=== PATIENT | female | born 1930 | race Caucasian/White ===

== ENCOUNTER → 2018-01-07 | Outpatient (CLI) | payer OTHER ==
[~2018-01-07] MED LIST: ACET325 PO; AMLO10/20 PO; ASPI325 PO; ASPI81CH PO; B Complete1 EACH PO; BENZ100A PO; BIMA.03OPS RIGHTEYE; DOCU100 PO; DONE5 PO; GENT.3OPSA BOTHEYES; LATA.005SO BOTHEYES; Slow Release I160 MG PO; TIMDOROPSO BOTHEYES; TIMO.5OPSO RIGHTEYE; VALS80 PO; VITAMIN D-32000 UNIT PO; [UNRECOGNIZED DRUG - OTHER] RIGHTEYE
== END ==
LOC: LAB 12:00 → LAB SHORT 12:00
DX: I83.018 Varicose veins of right lower extremity with ulcer other part of lower leg (principal)
CPT/HCPCS: 87070; 87075; 87205

== ENCOUNTER 2018-07-01 11:28 | Emergency (ER) | payer MEDICARE ==
[~2018-07-01] VITALS: Ht 162.6 cm; Wt 48.1 kg
[~2018-07-01 11:28] MED LIST changes: -B Complete1 EACH PO; -DOCU100 PO; +Exelon1 EAC1 TD; +FLUOROURACIL30 GM TOP; -LATA.005SO BOTHEYES; +MONT10T PO; +ONDA4ODT MM; +ONDA4ODT PO; +PANT40 PO; -Slow Release I160 MG PO; -VALS80 PO; -VITAMIN D-32000 UNIT PO
[2018-07-01] MEDS ORDERED: CITRATE OF MAG296 ML PO (14:51)
== END 2018-07-01 15:18 | disposition home or self-care (01) ==
LOC: ER 11:28
DX: K59.00 Constipation, unspecified (principal); Z79.899 Other long term (current) drug therapy
CPT/HCPCS: 74019; 99283-25

== ENCOUNTER → 2018-08-11 | Outpatient (CLI) | payer MEDICARE ==
[~2018-08-11] MED LIST changes: +**INCOMPLETE MED REC; +ABAT250V; +ACIDOPHILUS LA1 EACH PO; +Alphagan P5 ML BOTHEYES; +Amox Tr-K Clv1 EAC1 PO; +CHOL10002 PO; +CITRATE OF MAG296 ML PO; +DOCU100 PO; +Dorzolamide-Tim10 ML BOTHEYES; +ELIQUIS5 MG PO; +Ferrous Sulfat325 M2 PO; +IRON PO; +LOSARTAN-HCTZ1 EAC2 PO; +MELA3 PO; +PANT20 PO; +PROBIOTIC1 EAC1 PO; +Proctosol HC30 GM TOP; +Super B With V1 EACH PO; +TIMOLOL 0.5%-DO10 ML BOTHEYES; +VITAMIN D-32000 UNIT PO; +XARELTO20 MG PO; +Xalatan2.5 ML BOTHEYES
== END | disposition home or self-care (01) ==
LOC: LAB 09:07 → LAB SHORT 09:07
DX: R30.0 Dysuria (principal)
CPT/HCPCS: 87086

== ENCOUNTER 2018-08-14 14:08 | Observation (INO) | payer MEDICARE ==
[~2018-08-14] VITALS: Ht 162.6 cm; Wt 48.5 kg
[~2018-08-14 14:08] MED LIST changes: -**INCOMPLETE MED REC; -ABAT250V; -ACIDOPHILUS LA1 EACH PO; -Alphagan P5 ML BOTHEYES; -Amox Tr-K Clv1 EAC1 PO; -CHOL10002 PO; -DOCU100 PO; -Dorzolamide-Tim10 ML BOTHEYES; -ELIQUIS5 MG PO; -Ferrous Sulfat325 M2 PO; -IRON PO; -LOSARTAN-HCTZ1 EAC2 PO; -MELA3 PO; -PANT20 PO; -PROBIOTIC1 EAC1 PO; -Proctosol HC30 GM TOP; -Super B With V1 EACH PO; -TIMOLOL 0.5%-DO10 ML BOTHEYES; -VITAMIN D-32000 UNIT PO; -XARELTO20 MG PO; -Xalatan2.5 ML BOTHEYES
[2018-08-14 14:56] LABS: BASOPHILS ABSOLUTE AUTO 0.02 K/mm3 (0.00-0.23); BASOPHILS PERCENT AUTO 0 % (0-2); EOSINOPHILS ABSOLUTE AUTO 0.15 K/mm3 (0.00-0.68); EOSINOPHILS PERCENT AUTO 3 % (0-6); Hematocrit 34.8 % (33.0-51.0); Hemoglobin 10.9 g/dL (11.5-16.0); IMMATURE GRAN ABSOLUTE AUTO 0.02 K/mm3 (0.00-0.10); IMMATURE GRAN PERCENT AUTO 0 % (0-1); LYMPHOCYTES ABSOLUTE AUTO 0.92 K/mm3 (0.84-5.20); LYMPHOCYTES PERCENT AUTO 16 % (21-46); MONOCYTES ABSOLUTE AUTO 0.38 K/mm3 (0.16-1.47); MONOCYTES PERCENT AUTO 7 % (4-13); Mean Corpuscular HGB 31.1 pg (26.0-34.0); Mean Corpuscular HGB Conc 31.3 g/dL (31.5-36.5); Mean Corpuscular Volume 99 fL (80-100); Mean Platelet Volume 9.8 fL (9.1-12.4); NEUTROPHILS PERCENT AUTO 74 % (41-73); Platelet Count 243 K/mm3 (150-400); RDW Standard Deviation 47.8 fL (35.1-46.3); White Blood Cell Count 5.69 K/mm3 (4.00-11.30)
[2018-08-14 15:13] LABS: Alanine Aminotransfer (ALT/SGP 28 U/L (12-78); Albumin, Blood 3.3 g/dL (3.4-5.0); Albumin/Globulin Ratio 0.7 (0.8-1.8); Alk Phos 97 U/L (50-136); Anion Gap 8 mmol/L (6-16); Aspartate Aminotrans (AST/SGOT 20 U/L (12-37); Bilirubin, Total 0.3 mg/dL (0.1-1.0); Blood Urea Nitrogen 26 mg/dL (8-24); Bun/Creatinine Ratio 34.6 (12.0-20.0); CO2, Blood 26 mmol/L (21-32); Calcium, Blood 9.7 mg/dL (8.5-10.1); Chloride, Blood 110 mmol/L (98-108); Creatinine, Blood 0.75 mg/dL (0.40-1.00); Globulin, Blood 4.5 g/dL (2.2-4.0); Glomerular Filtration Rate >60 (60-); Glucose, Blood 102 mg/dL (70-99); Potassium, Blood 3.9 mmol/L (3.5-5.5); Sodium, Blood 144 mmol/L (136-145); Total Protein, Blood 7.8 g/dL (6.4-8.2)
[2018-08-14] MEDS ORDERED: TIMOLOL 0.5%-DO10 ML BOTHEYES (15:52)
[2018-08-14] MEDS ORDERED: **INCOMPLETE MED REC (16:19)
[2018-08-14] MEDS ORDERED: Alphagan P5 ML BOTHEYES (17:05)
[2018-08-14] MEDS ORDERED: VITAMIN D-32000 UNIT PO (17:06)
[2018-08-14] MEDS ORDERED: XARELTO20 MG PO (17:13)
[2018-08-14] MEDS ORDERED: LOSARTAN-HCTZ1 EAC2 PO (17:13)
[2018-08-14] MEDS ORDERED: Dorzolamide-Tim10 ML BOTHEYES (17:16)
[2018-08-14] MEDS ORDERED: Xalatan2.5 ML BOTHEYES (17:18)
[2018-08-14] MEDS ORDERED: IRON PO (17:18)
[2018-08-14] MEDS ORDERED: Super B With V1 EACH PO (17:19)
[2018-08-14] MEDS ORDERED: CHOL10002 PO (17:20)
[2018-08-14] MEDS ORDERED: DOCU100 PO (17:21)
[2018-08-14] MEDS ORDERED: MELA3 PO (17:21)
[2018-08-14] MEDS ORDERED: PROBIOTIC1 EAC1 PO (17:22)
[2018-08-14] MEDS ORDERED: Proctosol HC30 GM TOP (17:24)
[2018-08-14 17:33] LABS: Hematocrit 32.2 % (33.0-51.0); Hemoglobin 10.1 g/dL (11.5-16.0)
[2018-08-14] MEDS ORDERED: Amox Tr-K Clv1 EAC1 PO (17:51)
--- NOTE | 2018-08-14 20:45 | NUR ---
PATIENT IS A NEW ADMIT FROM THE ED. THREE PERSON TRANSFER FROM [facility] TO BED. AXO TO SELF AND DAUGHTER; NOT SURE OF MONTH OR NAME OF FACILITY BUT KNOW IT IS HEALTH CARE RELATED. DAUGHTER PRESENT ON ADMIT. IV PROTONIX INFUSING FROM ED AT 10 mL/HR. FAMILY AND PATIENT ORIENTED TO ROOM AND CALL LIGHT. DENIES PAIN, SOB, AND N/V. DAUGHTER STAYING FOR ANOTHER HOUR. BED ALARM ACTIVATED. CALL LIGHT IN REACH. WILL CONTINUE TO MONITOR.
--- NOTE | 2018-08-14 21:20 | NUR ---
DAUGHTER CALLED CAREGIVER TO SIT WITH PATIENT THIS SHIFT.
--- NOTE | 2018-08-14 22:08 | NUR ---
UA COLLECTED AND SENT TO LAB.
--- NOTE | 2018-08-14 22:09 | NUR ---
CAREGIVER PRESENT IN ROOM UNTIL MORNING. DAUGHTER LEFT FOR EVENING.
[2018-08-14 22:15] LABS: Source, Urine Clean Catch
[2018-08-14 22:21] LABS: Bilirubin, Urine Neg (Neg); Blood, Urine Neg (Neg); Glucose Qualitative, Urine Neg (Neg); Ketones, Urine Neg (Neg); Leukocyte Esterase, Urine 1+ (Neg); Nitrite, Urine Neg (Neg); Protein, Urine Neg (Neg); Specific Gravity, Urine 1.015 (1.003-1.022); Urobilinogen, Urine NORM (Normal)
[2018-08-14 22:23] LABS: Appearance, Urine Clear (Clear); Color, Urine Yellow (P-Yellow)
[2018-08-14 22:33] LABS: Bacteria Rare /hpf; Red Blood Cells, Urine Not Seen /hpf (0-2); Squamous Epithelial Cells Rare /hpf (Few)
--- NOTE | 2018-08-14 23:07 | NUR ---
NS INFUSING AT 75mL/HR AND PROTONIX AT 10 mL/HR. CAREGIVER PRESENT TALKING WITH PATIENT. CALL LIGHT IN REACH.
--- NOTE | 2018-08-14 23:25 | NUR ---
GI CONSULT CALLED IN TO ANSWERING SERVICE PER ORDER. REASON: GI BLEED
[2018-08-14 23:42] LABS: Hematocrit 30.7 % (33.0-51.0); Hemoglobin 9.9 g/dL (11.5-16.0)
--- NOTE | 2018-08-15 00:58 | NUR ---
PATIENT ACTIVATED BED ALARM X 3 SINCE ADMIT. PATIENT REORIENTED BACK INTO BED. CAREGIVER NO LONGER PRESENT IN ROOM AND DID NOT COMMUNICATE WHEN SHE LEFT. BED ALARM ACTIVATED.
--- NOTE | 2018-08-15 01:28 | NUR ---
BED EXIT ALARM X 2 IN LAST 15 MINUTES. PATIENT NOT ABLE TO ORIENTATE AT THIS TIME. BED ALARM SET. CALL LIGHT IN REACH.
--- NOTE | 2018-08-15 02:01 | NUR ---
PATIENT CONTINUES TO TRY TO EXIT BED X4 SITTING AT SIDE OF BED WHEN ALARM ACTIVATES. PATIENT REPOSITIONED BACK INTO BED. PATIENT AGITATION INCREASING WANTING TO LEAVE BED. WILL CONTINUE TO MONITOR.
--- NOTE | 2018-08-15 03:23 | NUR ---
[place] VEST AND BILATERAL SOFT RESTRAINTS ORDERED BY HOSPITALIST DR BERMUDEZ. FOR TRYING TO EXIT BED; FALL RISK; PULLING AT IV, CORDS, LINES; PULLING TELE OFF.
--- NOTE | 2018-08-15 03:47 | NUR ---
SHIFT SUMMARY PATIENT IS A NEW ADMIT FROM ED. AXO TO SELF AND DAUGHTER. PIV REMAINS INTACT. IV PROTONIC INFUSING AT 10 mL/HR AND NS INFUSING AT 75mL/HR. PATIENT TRIED TO EXIT BED FOR A FEW HOURS. HOSPITALIST DR BERMUDEZ ORDERD [place] VEST AND BILATERAL WRIST RESTRAINTS. PATIENT IS A FALL RISK; PULLS AT IV LINES AND CORDS FROM TELE. AUDIOVISUAL TECH REPORTS NSR 65. DENIES PAIN, SOB, AND N/V. DAUGHTER PRESENT FOR ADMIT AND CALLED HER CAREGIVER TO STAY FOR THE FULL NIGHT. CAREGIVER LEFT WHEN PATIENT FELL ASLEEP NOT INFORMING STAFF. PATIENT IS NPO. TWO PERSON ASSIST TO BSC. GI CONSULT CALLED IN. UA SENT TO LAB. INCREASED AGITITATION T/O SHIFT. BED IN LOWEST POSITION. WILL CONTINUE TO MONITOR UNTIL DAY SHIFT NURSE ASSUMES CARE.
[2018-08-15 06:05] LABS: Hematocrit 29.2 % (33.0-51.0); Hemoglobin 9.3 g/dL (11.5-16.0); Mean Corpuscular HGB Conc 31.8 g/dL (31.5-36.5); Mean Corpuscular Volume 97 fL (80-100); Platelet Count 216 K/mm3 (150-400); RDW Coefficient Variation 12.8 % (11.7-14.2); RDW Standard Deviation 45.5 fL (35.1-46.3); White Blood Cell Count 5.87 K/mm3 (4.00-11.30)
[2018-08-15 06:14] LABS: Anion Gap 8 mmol/L (6-16); Blood Urea Nitrogen 22 mg/dL (8-24); Bun/Creatinine Ratio 28.9 (12.0-20.0); CO2, Blood 23 mmol/L (21-32); Calcium, Blood 9.1 mg/dL (8.5-10.1); Chloride, Blood 115 mmol/L (98-108); Creatinine, Blood 0.76 mg/dL (0.40-1.00); Glomerular Filtration Rate >60 (60-); Glucose, Blood 104 mg/dL (70-99); Potassium, Blood 3.5 mmol/L (3.5-5.5); Sodium, Blood 146 mmol/L (136-145)
[2018-08-15] MEDS ORDERED: Ferrous Sulfat325 M2 PO (12:19)
[2018-08-15] MEDS ORDERED: LOSARTAN-HCTZ1 EAC2 PO (12:22)
[2018-08-15] MEDS ORDERED: ACIDOPHILUS LA1 EACH PO (12:22)
[2018-08-15] MEDS ORDERED: XARELTO20 MG PO (12:23)
[2018-08-15] MEDS ORDERED: MELA3 PO (12:23)
[2018-08-15] MEDS ORDERED: ABAT250V (12:49)
[2018-08-15] MEDS ORDERED: ELIQUIS5 MG PO ×2 (12:49→13:05)
[2018-08-15] MEDS ORDERED: PANT20 PO (12:51)
--- NOTE | 2018-08-15 14:18 | NUR ---
PT DISCHARGED HOME AT 1245 TODAY WITH DAUGHTER TO TRANSPORT. ALL PAPERS REVIEWED AND EDUCATIONAL MATERIAL SENT. MEDICATIONS FAXED TO [facility]. PT AOX1 AND HAD NEED OF RESTRAINTS THROUGH OUT THE MORNING. PT IMPULSIVE AND HAD A HARD TIME FOLLOWING INSTRUTION. PT WAS ESCORTED IN WHEEL CHAIR BY TWO [employer] FOR ASSITANCE INTO AUTOMOBILE. IV REMOVED PRIOR TO DISCHARGE.
== END 2018-08-15 13:47 | disposition home or self-care (01) ==
LOC: ER 14:08 → MEDS 14:09
PROVIDERS: Physician Assistant; ADMIT Internal Medicine
DX: K92.2 Gastrointestinal hemorrhage, unspecified (principal); D64.9 Anemia, unspecified; I10 Essential (primary) hypertension; F03.90 Unspecified dementia, unspecified severity, without behavioral disturbance, psychotic disturbance, mood disturbance, and anxiety; Z86.711 Personal history of pulmonary embolism; Z79.01 Long term (current) use of anticoagulants; Z79.899 Other long term (current) drug therapy
CPT/HCPCS: 36415; 80048; 80053; 81001; 82272; 85014; 85018; 85025; 85027; 87086; 93005; 93010; 96365; 96366; 96376; 99285-25; C9113; G0378; J7030

== ENCOUNTER 2018-09-07 17:13 | Inpatient (IN) | payer MEDICARE ==
[~2018-09-07] VITALS: Ht 162.6 cm; Wt 62.8 kg
[~2018-09-07 17:13] MED LIST changes: +**INCOMPLETE MED REC; +ABAT250V; +ACIDOPHILUS LA1 EACH PO; +Alphagan P5 ML BOTHEYES; +Amox Tr-K Clv1 EAC1 PO; +CHOL10002 PO; +DOCU100 PO; +Dorzolamide-Tim10 ML BOTHEYES; +ELIQUIS5 MG PO; +Ferrous Sulfat325 M2 PO; +IRON PO; +LOSARTAN-HCTZ1 EAC2 PO; +MELA3 PO; +PANT20 PO; +PROBIOTIC1 EAC1 PO; +Proctosol HC30 GM TOP; +Super B With V1 EACH PO; +TIMOLOL 0.5%-DO10 ML BOTHEYES; +VITAMIN D-32000 UNIT PO; +XARELTO20 MG PO; +Xalatan2.5 ML BOTHEYES
[2018-09-07] MEDS ORDERED: ELIQUIS5 MG PO (17:30)
[2018-09-07] MEDS ORDERED: BRIMONIDINE TART5 M1 OP (17:53)
[2018-09-07 18:20] LABS: BASOPHILS ABSOLUTE AUTO 0.02 K/mm3 (0.00-0.23); BASOPHILS PERCENT AUTO 0 % (0-2); EOSINOPHILS PERCENT AUTO 0 % (0-6); Hematocrit 30.1 % (33.0-51.0); Hemoglobin 9.8 g/dL (11.5-16.0); IMMATURE GRAN ABSOLUTE AUTO 0.03 K/mm3 (0.00-0.10); IMMATURE GRAN PERCENT AUTO 0 % (0-1); LYMPHOCYTES ABSOLUTE AUTO 0.64 K/mm3 (0.84-5.20); LYMPHOCYTES PERCENT AUTO 6 % (21-46); MONOCYTES ABSOLUTE AUTO 0.62 K/mm3 (0.16-1.47); MONOCYTES PERCENT AUTO 6 % (4-13); Mean Corpuscular HGB Conc 32.6 g/dL (31.5-36.5); Mean Platelet Volume 10.1 fL (9.1-12.4); NEUTROPHILS ABSOLUTE AUTO 9.27 K/mm3 (1.96-9.15); NEUTROPHILS PERCENT AUTO 88 % (41-73); Platelet Count 193 K/mm3 (150-400); Red Blood Cell Count 3.06 M/mm3 (3.80-5.20); White Blood Cell Count 10.58 K/mm3 (4.00-11.30)
[2018-09-07 18:22] LABS: Mean Corpuscular Volume 98 fL (80-100)
[2018-09-07 18:28] LABS: Source, Urine Catheter
[2018-09-07 18:32] LABS: Alanine Aminotransfer (ALT/SGP 21 U/L (12-78); Albumin, Blood 2.9 g/dL (3.4-5.0); Albumin/Globulin Ratio 0.7 (0.8-1.8); Alk Phos 86 U/L (50-136); Anion Gap 8 mmol/L (6-16); Aspartate Aminotrans (AST/SGOT 25 U/L (12-37); Bilirubin, Total 0.6 mg/dL (0.1-1.0); Blood Urea Nitrogen 22 mg/dL (8-24); CO2, Blood 25 mmol/L (21-32); Calcium, Blood 8.9 mg/dL (8.5-10.1); Chloride, Blood 106 mmol/L (98-108); Creatinine, Blood 0.73 mg/dL (0.40-1.00); Globulin, Blood 4.2 g/dL (2.2-4.0); Glomerular Filtration Rate >60 (60-); Glucose, Blood 115 mg/dL (70-99); Potassium, Blood 3.1 mmol/L (3.5-5.5); Sodium, Blood 139 mmol/L (136-145); Total Protein, Blood 7.1 g/dL (6.4-8.2); Troponin I 0.039 ng/mL (0.000-0.040)
[2018-09-07 18:34] LABS: Bilirubin, Urine Neg (Neg); Blood, Urine 4+ (Neg); Glucose Qualitative, Urine Neg (Neg); Ketones, Urine 1+ (Neg); Leukocyte Esterase, Urine Neg (Neg); Nitrite, Urine Neg (Neg); Protein, Urine 1+ (Neg); Urobilinogen, Urine NORM (Normal)
[2018-09-07 18:39] LABS: Appearance, Urine Clear (Clear); Color, Urine Yellow (P-Yellow)
[2018-09-07 18:40] LABS: Bacteria Mod /hpf; Red Blood Cells, Urine 25-50 /hpf (0-2); Squamous Epithelial Cells Not Seen /hpf (Few); White Blood Cells, Urine 0-2 /hpf (0-5)
[2018-09-07 18:52] LABS: Influenza A Negative (NEGATIVE); Influenza B Negative (NEGATIVE)
[2018-09-08 04:36] LABS: BASOPHILS ABSOLUTE AUTO 0.02 K/mm3 (0.00-0.23); BASOPHILS PERCENT AUTO 0 % (0-2); EOSINOPHILS ABSOLUTE AUTO 0.01 K/mm3 (0.00-0.68); EOSINOPHILS PERCENT AUTO 0 % (0-6); Hematocrit 28.1 % (33.0-51.0); Hemoglobin 9.1 g/dL (11.5-16.0); IMMATURE GRAN ABSOLUTE AUTO 0.06 K/mm3 (0.00-0.10); IMMATURE GRAN PERCENT AUTO 1 % (0-1); LYMPHOCYTES ABSOLUTE AUTO 0.44 K/mm3 (0.84-5.20); LYMPHOCYTES PERCENT AUTO 5 % (21-46); MONOCYTES ABSOLUTE AUTO 0.51 K/mm3 (0.16-1.47); MONOCYTES PERCENT AUTO 6 % (4-13); Mean Corpuscular HGB 31.3 pg (26.0-34.0); Mean Corpuscular HGB Conc 32.4 g/dL (31.5-36.5); Mean Corpuscular Volume 97 fL (80-100); NEUTROPHILS ABSOLUTE AUTO 7.71 K/mm3 (1.96-9.15); NEUTROPHILS PERCENT AUTO 88 % (41-73); Platelet Count 160 K/mm3 (150-400); RDW Standard Deviation 46.3 fL (35.1-46.3); Red Blood Cell Count 2.91 M/mm3 (3.80-5.20); White Blood Cell Count 8.75 K/mm3 (4.00-11.30)
[2018-09-08 04:53] LABS: Anion Gap 8 mmol/L (6-16); Blood Urea Nitrogen 18 mg/dL (8-24); Bun/Creatinine Ratio 28.4 (12.0-20.0); CO2, Blood 22 mmol/L (21-32); Calcium, Blood 8.2 mg/dL (8.5-10.1); Chloride, Blood 113 mmol/L (98-108); Creatinine, Blood 0.63 mg/dL (0.40-1.00); Glomerular Filtration Rate >60 (60-); Glucose, Blood 102 mg/dL (70-99); Potassium, Blood 3.4 mmol/L (3.5-5.5); Sodium, Blood 143 mmol/L (136-145)
[2018-09-08 10:15] LABS: BASOPHILS ABSOLUTE AUTO 0.01 K/mm3 (0.00-0.23); BASOPHILS PERCENT AUTO 0 % (0-2); EOSINOPHILS PERCENT AUTO 0 % (0-6); Hematocrit 28.6 % (33.0-51.0); Hemoglobin 9.3 g/dL (11.5-16.0); IMMATURE GRAN PERCENT AUTO 1 % (0-1); LYMPHOCYTES PERCENT AUTO 4 % (21-46); MONOCYTES ABSOLUTE AUTO 0.56 K/mm3 (0.16-1.47); MONOCYTES PERCENT AUTO 6 % (4-13); Mean Corpuscular HGB 31.3 pg (26.0-34.0); Mean Corpuscular HGB Conc 32.5 g/dL (31.5-36.5); Mean Corpuscular Volume 96 fL (80-100); Mean Platelet Volume 9.8 fL (9.1-12.4); NEUTROPHILS ABSOLUTE AUTO 9.17 K/mm3 (1.96-9.15); NEUTROPHILS PERCENT AUTO 90 % (41-73); Platelet Count 166 K/mm3 (150-400); RDW Standard Deviation 45.8 fL (35.1-46.3); Red Blood Cell Count 2.97 M/mm3 (3.80-5.20); White Blood Cell Count 10.24 K/mm3 (4.00-11.30)
[2018-09-09 05:23] LABS: BASOPHILS ABSOLUTE AUTO 0.02 K/mm3 (0.00-0.23); BASOPHILS PERCENT AUTO 0 % (0-2); EOSINOPHILS PERCENT AUTO 0 % (0-6); Hematocrit 26.1 % (33.0-51.0); Hemoglobin 8.5 g/dL (11.5-16.0); IMMATURE GRAN ABSOLUTE AUTO 0.04 K/mm3 (0.00-0.10); IMMATURE GRAN PERCENT AUTO 1 % (0-1); LYMPHOCYTES ABSOLUTE AUTO 0.54 K/mm3 (0.84-5.20); LYMPHOCYTES PERCENT AUTO 8 % (21-46); MONOCYTES ABSOLUTE AUTO 0.64 K/mm3 (0.16-1.47); MONOCYTES PERCENT AUTO 9 % (4-13); Mean Corpuscular HGB 31.4 pg (26.0-34.0); Mean Corpuscular HGB Conc 32.6 g/dL (31.5-36.5); Mean Corpuscular Volume 96 fL (80-100); Mean Platelet Volume 9.9 fL (9.1-12.4); NEUTROPHILS ABSOLUTE AUTO 5.95 K/mm3 (1.96-9.15); NEUTROPHILS PERCENT AUTO 83 % (41-73); Platelet Count 157 K/mm3 (150-400); RDW Coefficient Variation 12.9 % (11.7-14.2); RDW Standard Deviation 45.7 fL (35.1-46.3); Red Blood Cell Count 2.71 M/mm3 (3.80-5.20); White Blood Cell Count 7.19 K/mm3 (4.00-11.30)
[2018-09-09 05:50] LABS: Alanine Aminotransfer (ALT/SGP 19 U/L (12-78); Albumin, Blood 2.5 g/dL (3.4-5.0); Albumin/Globulin Ratio 0.8 (0.8-1.8); Alk Phos 64 U/L (50-136); Anion Gap 8 mmol/L (6-16); Aspartate Aminotrans (AST/SGOT 26 U/L (12-37); Bilirubin, Total 0.4 mg/dL (0.1-1.0); Blood Urea Nitrogen 18 mg/dL (8-24); Bun/Creatinine Ratio 26.7 (12.0-20.0); CO2, Blood 22 mmol/L (21-32); Calcium, Blood 8.2 mg/dL (8.5-10.1); Chloride, Blood 114 mmol/L (98-108); Creatinine, Blood 0.67 mg/dL (0.40-1.00); Globulin, Blood 3.2 g/dL (2.2-4.0); Glomerular Filtration Rate >60 (60-); Glucose, Blood 106 mg/dL (70-99); Potassium, Blood 3.2 mmol/L (3.5-5.5); Sodium, Blood 144 mmol/L (136-145); Total Protein, Blood 5.7 g/dL (6.4-8.2)
--- NOTE | 2018-09-09 07:33 | NUR ---
alert, orintated to self, dementia, removed field start, saline locked, room air, frequent bm's during shift, call light in place and frequent reminder to utilize but has not used, walking rounds completed with day shift
--- NOTE | 2018-09-09 13:29 | NUR ---
Spiritual care visit conducted. Patient was lying in bed and alert when I entered the room. I was greeted by patient's daughter, Deja, who explained that the patient has alheimer's and so I talked with Deja about patient's current medical condition and about the Patient's life and family history. I then spent some time talking with patient and asked her if I could pray for her. Patient said "Yes." I provided prayer at that time. Patient and Deja expressed gratitude for the visit.
[2018-09-09 15:33] LABS: Adenovirus F 40/41 Not Detected (NOT DETECT); Astrovirus Not Detected (NOT DETECT); Campylobacter Sp Not Detected (NOT DETECT); Cryptosporidium Not Detected (NOT DETECT); Cyclospora Cayetanensis Not Detected (NOT DETECT); E. Coli O157 Not Detected (NOT DETECT); Entamoeba Histolytica Not Detected (NOT DETECT); Enteroaggregative E. coli-EAEC Not Detected (NOT DETECT); Enteropathogenic E. coli-EPEC Not Detected (NOT DETECT); Enterotoxigenic E. coli-ETEC Not Detected (NOT DETECT); Giardia Lamblia Not Detected (NOT DETECT); Norovirus GI/GII Not Detected (NOT DETECT); Plesiomonas Shigelloides Not Detected (NOT DETECT); Rotavirus A Not Detected (NOT DETECT); Salmonella Sp Not Detected (NOT DETECT); Sapovirus Not Detected (NOT DETECT); Shiga Toxin-prod E. coli-STEC Not Detected (NOT DETECT); Shigella/Enteroin E. coli-EIEC Not Detected (NOT DETECT); Vibrio Cholerae Not Detected (NOT DETECT); Vibrio Sp Not Detected (NOT DETECT); Yersinia Enterocolitica Not Detected (NOT DETECT)
--- NOTE | 2018-09-09 17:46 | NUR ---
SHIFT SUMMARY PATIENT A&O TO SELF AND FAMILY. VERY CONFUSED, HAS A HARD TIME FOLLOWING DIRECTION. PATIENT C/O OF PAIN IN BOTH LEGS THIS SHIFT, RN MEDICATED PER E AUG. DENIES ANY SOB, RESP E/U ON RA. STOOL SAMPLE SENT TODAY, CAME BACK C DIFF POSITIVE. PT STARTED ON ORAL VANCO. ON CONTACT PRECAUTIONS. FAMILY IS AT THE BEDSIDE. REPOSITIONED Q2 HOURS. RESTED THROUGHOUT THE SHIFT. NO OTHER ACUTE CHANGES. BED ALARM ON, CALL LIGHT WITHIN REACH. RN WILL CONTINUE TO MONITOR.
[2018-09-10 05:30] LABS: Hematocrit 28.4 % (33.0-51.0); Hemoglobin 9.1 g/dL (11.5-16.0); Mean Corpuscular HGB 31.6 pg (26.0-34.0); Mean Platelet Volume 9.9 fL (9.1-12.4); Platelet Count 162 K/mm3 (150-400); RDW Coefficient Variation 12.8 % (11.7-14.2); Red Blood Cell Count 2.88 M/mm3 (3.80-5.20); White Blood Cell Count 8.56 K/mm3 (4.00-11.30)
[2018-09-10 05:32] LABS: Mean Corpuscular Volume 99 fL (80-100)
[2018-09-10 05:51] LABS: Anion Gap 9 mmol/L (6-16); Blood Urea Nitrogen 19 mg/dL (8-24); Bun/Creatinine Ratio 28.3 (12.0-20.0); CO2, Blood 22 mmol/L (21-32); Calcium, Blood 8.5 mg/dL (8.5-10.1); Chloride, Blood 113 mmol/L (98-108); Creatinine, Blood 0.67 mg/dL (0.40-1.00); Glomerular Filtration Rate >60 (60-); Glucose, Blood 120 mg/dL (70-99); Potassium, Blood 3.4 mmol/L (3.5-5.5); Sodium, Blood 144 mmol/L (136-145)
[2018-09-10 06:12] LABS: BAND PERCENT MAN 9 % (0-8); BASOPHILS PERCENT MAN 0 % (0-2); EOSINOPHILS PERCENT MAN 0 % (0-6); LYMPHOCYTES ABSOLUTE MAN 0.42 K/mm3 (0.84-5.20); LYMPHOCYTES PERCENT MAN 5 % (21-46); MONOCYTES ABSOLUTE MAN 0.42 K/mm3 (0.16-1.47); MONOCYTES PERCENT MAN 5 % (4-13); SEG NEUTROPHILS PERCENT MAN 81 % (41-73); TOTAL CELLS COUNTED 100
--- NOTE | 2018-09-10 07:55 | NUR ---
compliant, confused and anxious, saline locked, room air, call light in reach, walking report given to day shift
[2018-09-10] MEDS ORDERED: ACET325 PO (12:51)
[2018-09-10] MEDS ORDERED: Zantac150 MG PO (12:51)
[2018-09-10] MEDS ORDERED: VANC125 PO (12:52)
[2018-09-10] MEDS ORDERED: POTCHL20ER PO (12:52)
--- NOTE | 2018-09-10 17:41 | NUR ---
Met with pt's dtr, Deja, at bedside. Deja expressed concern about pt being discharged too son. Deja lives in [place] with her family, but has been staying with her mom for several months. She plans on continuing this. Deja is aware of her mother's progressive dementia and beleives her mom's only problem is C-diff "that can be cured with antibiotics." Pt appears calm and weak. She did not respond to me verbally and did not appear to follow conversation. Deja spoke at length about her pride in her mother's strength and capacity for love. I affirmed this was reflected in Deja. Deja calmed considerably by being heard and understood. She beleives her mom will "be able to live well past 90." I am uncertain this is a realistic goal. That said, Mrs. Carmen does not appear to be struggling or suffering in any way. I offered continued prayer, guidence, and emotional support.
--- NOTE | 2018-09-10 19:28 | NUR ---
SHIFT SUMMARY PATIENT A&0 TO SELF AND FAMILY. DENIES ANY PAIN OR SOB THIS SHIFT. RN MEDICATED X1 FOR A TEMPERATURE OF 100.2. NS RUNNING @ 125. FAMILY AT THE BEDSIDE. REPOSITIONED AND CHANGED Q2 HOURS AND PRN. NO ACUTE CHANGES THIS SHIFT.
--- NOTE | 2018-09-10 19:30 | NUR ---
Assumed care of pt at 1930 after recieving report from off-going nurse.
[2018-09-11 05:56] LABS: BASOPHILS ABSOLUTE AUTO 0.03 K/mm3 (0.00-0.23); BASOPHILS PERCENT AUTO 0 % (0-2); EOSINOPHILS ABSOLUTE AUTO 0.15 K/mm3 (0.00-0.68); EOSINOPHILS PERCENT AUTO 2 % (0-6); Hematocrit 28.2 % (33.0-51.0); IMMATURE GRAN ABSOLUTE AUTO 0.09 K/mm3 (0.00-0.10); IMMATURE GRAN PERCENT AUTO 1 % (0-1); LYMPHOCYTES ABSOLUTE AUTO 0.59 K/mm3 (0.84-5.20); LYMPHOCYTES PERCENT AUTO 7 % (21-46); MONOCYTES ABSOLUTE AUTO 0.58 K/mm3 (0.16-1.47); MONOCYTES PERCENT AUTO 7 % (4-13); Mean Corpuscular HGB 31.1 pg (26.0-34.0); Mean Corpuscular HGB Conc 31.9 g/dL (31.5-36.5); Mean Corpuscular Volume 98 fL (80-100); NEUTROPHILS PERCENT AUTO 82 % (41-73); Platelet Count 168 K/mm3 (150-400); RDW Coefficient Variation 13.1 % (11.7-14.2); RDW Standard Deviation 46.5 fL (35.1-46.3); Red Blood Cell Count 2.89 M/mm3 (3.80-5.20); White Blood Cell Count 8.04 K/mm3 (4.00-11.30)
[2018-09-11 06:11] LABS: Anion Gap 7 mmol/L (6-16); Blood Urea Nitrogen 15 mg/dL (8-24); Bun/Creatinine Ratio 23.2 (12.0-20.0); CO2, Blood 22 mmol/L (21-32); Calcium, Blood 7.9 mg/dL (8.5-10.1); Chloride, Blood 114 mmol/L (98-108); Creatinine, Blood 0.65 mg/dL (0.40-1.00); Glomerular Filtration Rate >60 (60-); Glucose, Blood 96 mg/dL (70-99); Potassium, Blood 3.5 mmol/L (3.5-5.5); Sodium, Blood 143 mmol/L (136-145)
--- NOTE | 2018-09-11 06:16 | NUR ---
Shift summary. Pt has had several bouts of c. diff diahea during the night. Pt has to be cleaned up every one to two hours. Ernestine area has some redness but holding up. Pt has dementia and it is hard to ascertain what pt needs. Pt just looks at you with blank stare. Pt tolerating the po vanco and takes her meds willingly. Pt turned q 2 hours during the night.
--- NOTE | 2018-09-11 16:54 | NUR ---
SHIFT SUMMARY PT CONTINUES TO HAVE LOOSE STOOLS. NO OTHER CHANGES IN ASSESSMENT AT THIS TIME. PT TRANSFERING WITH 1P ASSISTANCE. VSS. PT DAUGHTER AT BEDSIDE. PT & DAUGHTER DENY NEEDS AT THIS TIME. CALL LIGHT IN REACH. WILL CONTINUE TO MONITOR UNTIL TURNOVER IS COMPLETE.
--- NOTE | 2018-09-11 19:32 | NUR ---
PT SITTING UP IN BED SMILING. FAMILY AT BEDSIDE. NO NEEDS AT THIS TIME. CALL LT IN REACH.
--- NOTE | 2018-09-11 21:34 | NUR ---
TYLENOL 650MG GIVEN PO FOR TEMP OF 101.4. TEMP TRENDING DOWN AFTER TYLENOL AND SOME BED LINENS REMOVED. TEMP 98.8.
--- NOTE | 2018-09-11 22:26 | NUR ---
MORTAR MIXER OPERATOR LEFT FOR THE NIGHT BUT WITH INSTRUCTIONS TO CALL HER IF PT BECOMES RESTLESS AND AGITATED. PT RESTING QUIETLY AT THIS TIME.
--- NOTE | 2018-09-12 05:02 | NUR ---
SHIFT SUMMARY: PLEASANTLY CONFUSED, SMILES AT STAFF. NO COMPLAINTS OF PAIN, NAUSEA OR SOB. LIKES TO TALK ABOUT HER CHILDHOOD. CAREGIVERS STAYED FOR PART OF THE SHIFT. PT HAS DIFFICULTY SWALLOWING LARGER PILLS USUALLY ENDS UP CHEWING THE PILLS. SMALLER PILLS PT TAKES WITH APPLESAUCE. NO COUGHING OR CHOKING DURING MED PASS. INCONTINENT OF URINE AND BOWEL. NO WATERY STOOLS. NO ACUTE CHANGES. WILL CONTINUE TO MONITOR AND PROVIDE CARE UNTIL SHIFT REPORT.
--- NOTE | 2018-09-12 14:00 | NUR ---
CALLED PT'S DR PT'S FAMILY STATES THEY HEAR CHEST CONGESTION IN THE PT. PT IS WEAKLY COUGHING FREQUENTLY. NON PRODUCTIVE. CALLED TO RELATE INFORMATION AND LEFT MESSAGE. IV FLUIDS: NS IS RUNNING AT 125 ML/HR. HOB IS ELEVATED.
--- NOTE | 2018-09-12 16:25 | NUR ---
SHIFT SUMMARY PT'S FAMILY EXPRESS FREQUENT CONCERN OVER THIS PT'S SYMPTOMS. PT IS IN GOOD SPIRITS AND SMILING. DID SIT IN BEDSIDE CHAIR TODAY. PT IS ON CONTACT PRECAUTIONS/ORAL VANCO FOR CDIF, ROOM AIR, AND AN IV IS RUNNING 125 ML/HR NS. PILLS ARE GIVEN W/APPLESAUCE, HOB ELEVATED. PT IS INCONTINENT OF BOTH BLADDER AND BOWEL. SHE IS PLEASANTLY CONFUSED. ADMITTED FOR WEAKNESS, SHE HAS A HX OF DEMENTIA. PT RECEIVED TESSALON PEARLS AND CLARITIN TODAY FOR A MILD UNPRODUCTIVE COUGH. NO ADVENTITIOUS LUNG SOUNDS WERE HEARD BY ME OR THE .
--- NOTE | 2018-09-12 22:01 | NUR ---
PT QUIETLY RESTING.
--- NOTE | 2018-09-13 04:04 | NUR ---
NOTIFIED DR THAT PT HAD A NEW ONSET OF BEING WHEEZY. INFORMED DR THAT PT HAS BEEN ON CONTINUOUS IVF FOR A FEW DAYS. ORDER GIVEN TO SALINE PT.
--- NOTE | 2018-09-13 04:05 | NUR ---
SHIFT SUMMARY: FLAT AFFECT DURING ASSESSMENT. DAUGHTER AND CARE GIVERS WERE AT BEDSIDE. PT HAD NO COMPLAINTS. MACHINE ZIPPER TRIMMER STATES THAT PT APPEARED TO BE HURTING IN HER RIB CAGE. GAVE TYLENOL WHICH SEEMED TO MAKE THE PT MORE COMFORTABLE. MEDS GIVEN CRUSHED IN APPLESAUCE, TOLERATED WELL. PT HAD A NEW ONSET OF BEING WHEEZY AT 0330. PT HAS ALSO BEEN ON CONTINUOUS IVF'S AT 125 MLS FOR A FEW DAYS. ORDER RECEIVED FROM TO SALINE LOCK PT. NO REPORTED STOOLS THIS SHIFT. WILL CONTINUE TO MONITOR AND PROVIDE CARE UNTIL SHIFT REPORT.
--- NOTE | 2018-09-13 05:26 | NUR ---
PT QUIETLY RESTING. NO WHEEZING NOTED.
--- NOTE | 2018-09-13 11:18 | NUR ---
[facility] CLINICAL ASSESSMENT: Referral received for advanced care planning and to establish goals of care. EMR and POLST on file reviewed. Pt's POA is dlDeja [phone]. Spoke with pt's RN for current update before my visit also. Pt is an 88 yr old woman, living with her daughter and has some cg assist in evenings also. PMH includes advanced dementia, PE, GI bleed and she was admitted due to acute weakness, dehydration, diarrhea found to be c-diff positive. PT/OT documented that pt was unable to participate with therapy due to impaired mentation/confusion and decreased ability to follow instructions/participate in an unfamiliar setting. Visit made with pt and dl. Pt is in recliner next to bed and Deja corcoran at her side. Pt smiles at me upon entering and doses off to sleep intermittently during my visit. RN reports she cont to have some loose stools and that she is able to take PO medications with applesause. I did not note any nonverbal indicators of pain, agitation or distress. Pt appeared sl anxious at times but it was transient and her daughter's presence is clearly a calming factor for her. RN reported some wheeze noted with respirations and iv fluids were halted until further assessment per Dr revealed no crackles and IV fluids were restarted. Pt had occ nonproductive cough and upper airway secretions noted during my visit. I reviewed pt's POLST dated 12/16 with dl/POA. It is signed by the pt. It states DNR, comfort measures only and no feeding tube. I reviewed HH vs Hospice re: care at home on d/c. Dl is uncertain about hospice and is concerned pt would not get iv fluids, iv meds if she needed them on hospice. I spent time reviewing why IV fluids/tx are not always beneficial if someone is nearing the end of their live and again reviewed pt's POLST with her. Dl is receptive to having HH support on discharge for added assessment, s/s management, PT as she has had experience with HH previously thru [facility]. She is also receptive to considering Hospice and EOL care if her mom is unable to return to her baseline or declines further. Deja states she is with her mom all the time and she has evening respite CG in place. Spoke with Dr after his visit and order obtained/entered for HH/care management. T/c with report on my visit and info provided to CM re: possible d/c home with home health tomorrow. Discussed w/dl that pt will be reassessed tomorrow by for readiness for d/c before d/c orders written. No recommendations made re: s/s management at this time. Dl Deja was given Nael' brochure on hospice and also booklet re: considering comfort care to educate and genterate questions for her mom's providers.
--- NOTE | 2018-09-13 16:05 | NUR ---
SHIFT SUMMARY IV FLUIDS CONTINUED TODAY DUE TO PT'S CONTINUED DIARRHEA AND LACK OF INTAKE. PT SEEN BY DIETARY, PALLIATIVE CARE TODAY. PHYSICAL THERAPY STOPPED IN, WILL RETURN LATER. IF DIARRHEA IMPROVES, PT WILL LIKELY DISCHARGE TOMORROW TO HOME. HOSPITALIST TODAY ALSO DID NOT HEAR ANY ADVENTITIOUS LUNG SOUNDS UPON AUSCULTATION. PT DOES GET WHEEZY AT TIMES, BUT DR'S FEEL THIS IS MORE DUE TO ALLERGIES THAN IV FLUIDS. THE PT' PREVIOUS IV LEAKED AND A NEW IV WAS INSERTED. PALLIATIVE CARE HAS OFFERED INFORMATION TO THE PT AND FAMILY RE: HOSPICE AND COMFORT CARE
--- NOTE | 2018-09-14 05:07 | NUR ---
SPOKE TO HOSPITALIST REGARDING PT ELEVATED BP; MRECEVED KARLI RUFF
--- NOTE | 2018-09-14 18:31 | NUR ---
PATIENT A/O TO SELF AND FAMILY. UP TO CHAIR AND AMBULATED IN HALLS X1 THIS SHIFT WITH FWW, GAIT BELT AND 2 ASSIST. FALL PRECAUTIONS IN PLACE PER UNIT PROTOCOL. 3 LOOSE INCONTINENT STOOLS THIS SHIFT. FLUIDS D/C'D AND LASIX GIVEN WITH ADEQUATE U/O. DAUGHTER MARLENE AT BEDSIDE THROUGHOUT THE SHIFT ASSISTING WITH MEALS. FAMILY AGREES THAT SHE IS TOO WEAK TO TAKE HOME AT THIS POINT. TOLERATING SMALL AMOUNTS OF REGULAR DIET.
--- NOTE | 2018-09-15 07:28 | NUR ---
SHIFT SUMMARY PT IS AN 88 Y/O FEMALE, ADMITTED FOR WEAKNESS. SHE IS A&O X SELF AND FAMILY ONLY, THOUGH SHE IS COOPERATIVE WITH CARE. PT IS TURN Q2, AND INCONTINENT. SHE SLEPT WELL THROUGH THE NIGHT WITH NO COMPLAINTS OF ACUTE SOB, NAUSEA OR PAIN. SHE WAS MEDICATED X 1 WITH TESSALON PERLS FOR COUGH. VITAL SIGNS STABLE. NO ACUTE CHANGES IN PT CONDITION NOTED. WILL CONTINUE TO MONITOR AND TREAT PER EMAR.
--- NOTE | 2018-09-15 14:25 | NUR ---
PATIENT D/C'D TO HOME VIA W/C TRANSPORT. RX MEDICATIONS CALLED INTO [facility]. D/C INSTRUCTIONS AND EDUCATION DISCUSSED WITH DAUGHTER MARLENE AND COPY PROVIDED. PATIENT AND DAUGHTER DENY ANY FURTHER QUESTIONS OR CONCERNS.
[2018-09-15] MEDS ORDERED: VANC125 PO (14:27)
[2018-09-15] MEDS ORDERED: BENZ100A PO (14:28)
== END 2018-09-15 14:31 | disposition home or self-care (01) | DRG 372 ==
LOC: DELPENDDIS → ER 17:13 → MEDS 17:14 → ERHOLD 17:14 → MEDS 09-08 17:36 → ENPENDDIS 09-10 12:43 → MEDS 09-13 06:58 → ENPENDDIS 09-15 11:56 → MEDS 09-15 14:31
PROVIDERS: Emergency Medicine; Family Medicine; ADMIT Hospitalist
DX: A04.72 Enterocolitis due to Clostridium difficile, not specified as recurrent (principal); K52.1 Toxic gastroenteritis and colitis; D64.9 Anemia, unspecified; F03.90 Unspecified dementia, unspecified severity, without behavioral disturbance, psychotic disturbance, mood disturbance, and anxiety; I10 Essential (primary) hypertension; E87.6 Hypokalemia; Z86.711 Personal history of pulmonary embolism; Z91.81 History of falling; Z51.5 Encounter for palliative care; K21.9 Gastro-esophageal reflux disease without esophagitis; Z66 Do not resuscitate; K64.9 Unspecified hemorrhoids; Z86.73 Personal history of transient ischemic attack (TIA), and cerebral infarction without residual deficits; E86.0 Dehydration; T36.0X5A Adverse effect of penicillins, initial encounter; K04.7 Periapical abscess without sinus
CPT/HCPCS: 36415; 70450; 71045; 80048; 80053; 81001; 84484; 85025; 87086; 87324; 87507; 87804; 93005; 93010; 96361; 96365; 96366; 96375; 96376; 97162; 97166; 97530; 99285-25; C9113; G0378; J0360; J1940; J3480; J7030; P9612

== ENCOUNTER 2018-10-01 13:42 | Emergency (ER) | payer MEDICARE ==
[~2018-10-01] VITALS: Ht 162.6 cm; Wt 47.6 kg
[2018-10-01 14:41] LABS: BASOPHILS ABSOLUTE AUTO 0.02 K/mm3 (0.00-0.23); BASOPHILS PERCENT AUTO 0 % (0-2); EOSINOPHILS ABSOLUTE AUTO 0.02 K/mm3 (0.00-0.68); EOSINOPHILS PERCENT AUTO 0 % (0-6); Hematocrit 35.5 % (33.0-51.0); Hemoglobin 11.2 g/dL (11.5-16.0); IMMATURE GRAN ABSOLUTE AUTO 0.06 K/mm3 (0.00-0.10); IMMATURE GRAN PERCENT AUTO 0 % (0-1); LYMPHOCYTES ABSOLUTE AUTO 0.41 K/mm3 (0.84-5.20); LYMPHOCYTES PERCENT AUTO 3 % (21-46); MONOCYTES ABSOLUTE AUTO 0.64 K/mm3 (0.16-1.47); MONOCYTES PERCENT AUTO 5 % (4-13); Mean Corpuscular HGB 31.8 pg (26.0-34.0); Mean Corpuscular HGB Conc 31.5 g/dL (31.5-36.5); Mean Corpuscular Volume 101 fL (80-100); NEUTROPHILS ABSOLUTE AUTO 12.31 K/mm3 (1.96-9.15); NEUTROPHILS PERCENT AUTO 92 % (41-73); Platelet Count 296 K/mm3 (150-400); RDW Coefficient Variation 12.8 % (11.7-14.2); RDW Standard Deviation 47.4 fL (35.1-46.3); Red Blood Cell Count 3.52 M/mm3 (3.80-5.20); White Blood Cell Count 13.46 K/mm3 (4.00-11.30)
[2018-10-01 15:05] LABS: Alanine Aminotransfer (ALT/SGP 16 U/L (12-78); Albumin, Blood 3.4 g/dL (3.4-5.0); Albumin/Globulin Ratio 0.8 (0.8-1.8); Alk Phos 97 U/L (50-136); Anion Gap 8 mmol/L (6-16); Aspartate Aminotrans (AST/SGOT 8 U/L (12-37); Bilirubin, Total 0.6 mg/dL (0.1-1.0); Blood Urea Nitrogen 26 mg/dL (8-24); Bun/Creatinine Ratio 36.7 (12.0-20.0); CO2, Blood 27 mmol/L (21-32); Calcium, Blood 9.6 mg/dL (8.5-10.1); Chloride, Blood 107 mmol/L (98-108); Creatinine, Blood 0.71 mg/dL (0.40-1.00); Globulin, Blood 4.2 g/dL (2.2-4.0); Glomerular Filtration Rate >60 (60-); Glucose, Blood 175 mg/dL (70-99); Potassium, Blood 3.6 mmol/L (3.5-5.5); Sodium, Blood 142 mmol/L (136-145); Total Protein, Blood 7.6 g/dL (6.4-8.2)
== END 2018-10-01 17:08 | disposition home or self-care (01) ==
LOC: ER 13:42
PROVIDERS: Physician Assistant
DX: A04.71 Enterocolitis due to Clostridium difficile, recurrent (principal); R55 Syncope and collapse; Z79.899 Other long term (current) drug therapy; F03.90 Unspecified dementia, unspecified severity, without behavioral disturbance, psychotic disturbance, mood disturbance, and anxiety; I10 Essential (primary) hypertension
CPT/HCPCS: 36415; 80053; 85025; 96360; 99285-25; J7120

== ENCOUNTER → 2018-10-01 | Outpatient (CLI) | payer MEDICARE ==
[~2018-10-01] MED LIST changes: +BRIMONIDINE TART5 M1 OP; +POTCHL20ER PO; +VANC125 PO; +Zantac150 MG PO
[2018-10-03 08:42] LABS: C DIFFICILE BY DNA AMP Positive (Negative)
== END | disposition home or self-care (01) ==
LOC: LAB 18:00 → LAB SHORT 18:00
PROVIDERS: Internal Medicine
DX: R19.7 Diarrhea, unspecified (principal)
CPT/HCPCS: 87324; 87493

== ENCOUNTER 2018-10-05 14:40 | Emergency (ER) | payer MEDICARE ==
[~2018-10-05] VITALS: Ht 167.6 cm; Wt 59.0 kg
[2018-10-05] MEDS ORDERED: VANCOMYCIN125 MG/2.5 PO (15:14)
[2018-10-05 15:35] LABS: BASOPHILS ABSOLUTE AUTO 0.03 K/mm3 (0.00-0.23); BASOPHILS PERCENT AUTO 0 % (0-2); EOSINOPHILS ABSOLUTE AUTO 0.08 K/mm3 (0.00-0.68); EOSINOPHILS PERCENT AUTO 1 % (0-6); Hematocrit 34.4 % (33.0-51.0); Hemoglobin 10.8 g/dL (11.5-16.0); IMMATURE GRAN ABSOLUTE AUTO 0.08 K/mm3 (0.00-0.10); IMMATURE GRAN PERCENT AUTO 1 % (0-1); LYMPHOCYTES ABSOLUTE AUTO 0.55 K/mm3 (0.84-5.20); LYMPHOCYTES PERCENT AUTO 4 % (21-46); MONOCYTES ABSOLUTE AUTO 0.85 K/mm3 (0.16-1.47); MONOCYTES PERCENT AUTO 6 % (4-13); Mean Corpuscular HGB 31.1 pg (26.0-34.0); Mean Corpuscular HGB Conc 31.4 g/dL (31.5-36.5); Mean Corpuscular Volume 99 fL (80-100); Mean Platelet Volume 10.5 fL (9.1-12.4); NEUTROPHILS ABSOLUTE AUTO 12.88 K/mm3 (1.96-9.15); NEUTROPHILS PERCENT AUTO 89 % (41-73); Platelet Count 277 K/mm3 (150-400); RDW Coefficient Variation 12.8 % (11.7-14.2); RDW Standard Deviation 46.3 fL (35.1-46.3); Red Blood Cell Count 3.47 M/mm3 (3.80-5.20); White Blood Cell Count 14.47 K/mm3 (4.00-11.30)
[2018-10-05 15:46] LABS: Alanine Aminotransfer (ALT/SGP 14 U/L (12-78); Albumin, Blood 2.9 g/dL (3.4-5.0); Albumin/Globulin Ratio 0.7 (0.8-1.8); Alk Phos 89 U/L (50-136); Anion Gap 6 mmol/L (6-16); Aspartate Aminotrans (AST/SGOT 15 U/L (12-37); Bilirubin, Total 0.4 mg/dL (0.1-1.0); Blood Urea Nitrogen 19 mg/dL (8-24); Bun/Creatinine Ratio 23.6 (12.0-20.0); CO2, Blood 30 mmol/L (21-32); Calcium, Blood 9.5 mg/dL (8.5-10.1); Chloride, Blood 107 mmol/L (98-108); Globulin, Blood 4.2 g/dL (2.2-4.0); Glomerular Filtration Rate >60 (60-); Glucose, Blood 143 mg/dL (70-99); Potassium, Blood 3.2 mmol/L (3.5-5.5); Sodium, Blood 143 mmol/L (136-145); Total Protein, Blood 7.1 g/dL (6.4-8.2)
[2018-10-05] MEDS ORDERED: Kaon-Cl40 MEQ/15 PO (17:18)
== END 2018-10-05 18:42 | disposition home or self-care (01) ==
LOC: ER 14:40
PROVIDERS: Emergency Medicine
DX: A04.72 Enterocolitis due to Clostridium difficile, not specified as recurrent (principal); E87.6 Hypokalemia; F03.90 Unspecified dementia, unspecified severity, without behavioral disturbance, psychotic disturbance, mood disturbance, and anxiety; Z86.73 Personal history of transient ischemic attack (TIA), and cerebral infarction without residual deficits; Z79.899 Other long term (current) drug therapy
CPT/HCPCS: 36415; 80053; 85025; 96360; 96361; 99285-25; J7030

== ENCOUNTER 2018-10-26 05:13 | Emergency (ER) | payer MEDICARE ==
[~2018-10-26] VITALS: Ht 170.2 cm; Wt 40.8 kg
[~2018-10-26 05:13] MED LIST changes: +Kaon-Cl40 MEQ/15 PO; +VANCOMYCIN125 MG/2.5 PO
[2018-10-26 05:28] LABS: BASOPHILS ABSOLUTE AUTO 0.02 K/mm3 (0.00-0.23); BASOPHILS PERCENT AUTO 0 % (0-2); EOSINOPHILS ABSOLUTE AUTO 0.09 K/mm3 (0.00-0.68); EOSINOPHILS PERCENT AUTO 1 % (0-6); Hematocrit 34.2 % (33.0-51.0); IMMATURE GRAN ABSOLUTE AUTO 0.02 K/mm3 (0.00-0.10); IMMATURE GRAN PERCENT AUTO 0 % (0-1); LYMPHOCYTES ABSOLUTE AUTO 0.63 K/mm3 (0.84-5.20); LYMPHOCYTES PERCENT AUTO 8 % (21-46); MONOCYTES ABSOLUTE AUTO 0.62 K/mm3 (0.16-1.47); MONOCYTES PERCENT AUTO 8 % (4-13); Mean Corpuscular HGB 31.8 pg (26.0-34.0); Mean Corpuscular HGB Conc 32.2 g/dL (31.5-36.5); Mean Corpuscular Volume 99 fL (80-100); Mean Platelet Volume 9.9 fL (9.1-12.4); NEUTROPHILS ABSOLUTE AUTO 6.84 K/mm3 (1.96-9.15); NEUTROPHILS PERCENT AUTO 83 % (41-73); Platelet Count 258 K/mm3 (150-400); RDW Coefficient Variation 12.9 % (11.7-14.2); RDW Standard Deviation 46.2 fL (35.1-46.3); Red Blood Cell Count 3.46 M/mm3 (3.80-5.20); White Blood Cell Count 8.22 K/mm3 (4.00-11.30)
[2018-10-26 05:46] LABS: Alanine Aminotransfer (ALT/SGP 13 U/L (12-78); Albumin, Blood 3.1 g/dL (3.4-5.0); Albumin/Globulin Ratio 0.7 (0.8-1.8); Alk Phos 105 U/L (50-136); Anion Gap 9 mmol/L (6-16); Aspartate Aminotrans (AST/SGOT 14 U/L (12-37); Bilirubin, Total 0.4 mg/dL (0.1-1.0); Blood Urea Nitrogen 17 mg/dL (8-24); Bun/Creatinine Ratio 20.8 (12.0-20.0); CO2, Blood 28 mmol/L (21-32); Calcium, Blood 9.2 mg/dL (8.5-10.1); Chloride, Blood 106 mmol/L (98-108); Creatinine, Blood 0.82 mg/dL (0.40-1.00); Globulin, Blood 4.2 g/dL (2.2-4.0); Glomerular Filtration Rate >60 (60-); Glucose, Blood 117 mg/dL (70-99); Potassium, Blood 3.2 mmol/L (3.5-5.5); Sodium, Blood 143 mmol/L (136-145); Total Protein, Blood 7.3 g/dL (6.4-8.2)
== END 2018-10-26 08:12 | disposition home or self-care (01) ==
LOC: ER 05:13
PROVIDERS: Emergency Medicine
DX: E87.6 Hypokalemia (principal); R19.7 Diarrhea, unspecified; F03.90 Unspecified dementia, unspecified severity, without behavioral disturbance, psychotic disturbance, mood disturbance, and anxiety; Z86.73 Personal history of transient ischemic attack (TIA), and cerebral infarction without residual deficits; Z79.899 Other long term (current) drug therapy
CPT/HCPCS: 36415; 80053; 85025; J7030; J7120

== ENCOUNTER 2019-05-28 18:05 | Emergency (ER) | payer MEDICARE ==
[~2019-05-28] VITALS: Ht 162.6 cm; Wt 45.4 kg
[~2019-05-28 18:05] MED LIST changes: +Flagyl500 MG PO; +Vancocin HCl250 MG PO
[2019-05-28 18:37] LABS: BASOPHILS ABSOLUTE AUTO 0.03 K/mm3 (0.00-0.23); BASOPHILS PERCENT AUTO 0 % (0-2); EOSINOPHILS ABSOLUTE AUTO 0.12 K/mm3 (0.00-0.68); EOSINOPHILS PERCENT AUTO 2 % (0-6); Hematocrit 34.8 % (33.0-51.0); Hemoglobin 11.7 g/dL (11.5-16.0); IMMATURE GRAN ABSOLUTE AUTO 0.02 K/mm3 (0.00-0.10); IMMATURE GRAN PERCENT AUTO 0 % (0-1); LYMPHOCYTES ABSOLUTE AUTO 1.45 K/mm3 (0.84-5.20); LYMPHOCYTES PERCENT AUTO 22 % (21-46); MONOCYTES ABSOLUTE AUTO 0.45 K/mm3 (0.16-1.47); MONOCYTES PERCENT AUTO 7 % (4-13); Mean Corpuscular HGB Conc 33.6 g/dL (31.5-36.5); Mean Corpuscular Volume 95 fL (80-100); Mean Platelet Volume 9.9 fL (9.1-12.4); NEUTROPHILS ABSOLUTE AUTO 4.65 K/mm3 (1.96-9.15); NEUTROPHILS PERCENT AUTO 69 % (41-73); Platelet Count 241 K/mm3 (150-400); RDW Coefficient Variation 12.1 % (11.7-14.2); RDW Standard Deviation 42.5 fL (35.1-46.3); Red Blood Cell Count 3.66 M/mm3 (3.80-5.20); White Blood Cell Count 6.72 K/mm3 (4.00-11.30)
[2019-05-28 18:59] LABS: Alanine Aminotransfer (ALT/SGP 13 U/L (12-78); Albumin, Blood 3.3 g/dL (3.4-5.0); Albumin/Globulin Ratio 0.8 (0.8-1.8); Alk Phos 88 U/L (50-136); Anion Gap 7 mmol/L (6-16); Aspartate Aminotrans (AST/SGOT 15 U/L (12-37); Bilirubin, Total 0.5 mg/dL (0.1-1.0); Blood Urea Nitrogen 26 mg/dL (8-24); Bun/Creatinine Ratio 37.8 (12.0-20.0); CO2, Blood 26 mmol/L (21-32); Calcium, Blood 10.1 mg/dL (8.5-10.1); Chloride, Blood 108 mmol/L (98-108); Creatinine, Blood 0.69 mg/dL (0.40-1.00); Glomerular Filtration Rate >60 (60-); Glucose, Blood 104 mg/dL (70-99); Potassium, Blood 3.8 mmol/L (3.5-5.5); Sodium, Blood 141 mmol/L (136-145); Total Protein, Blood 7.3 g/dL (6.4-8.2)
== END 2019-05-28 18:55 | disposition home or self-care (01) ==
LOC: ER 18:05
PROVIDERS: Physician Assistant
DX: R19.7 Diarrhea, unspecified (principal); Z79.899 Other long term (current) drug therapy; F03.90 Unspecified dementia, unspecified severity, without behavioral disturbance, psychotic disturbance, mood disturbance, and anxiety; I10 Essential (primary) hypertension
CPT/HCPCS: 36415; 80053; 83690; 85025; 99283

== ENCOUNTER → 2019-05-30 | Outpatient (CLI) | payer MEDICARE ==
[2019-05-31 12:37] LABS: C DIFFICILE BY DNA AMP Duplicate (Negative)
[2019-05-31 15:54] LABS: Adenovirus F 40/41 Not Detected (NOT DETECT); Astrovirus Not Detected (NOT DETECT); Campylobacter Sp Not Detected (NOT DETECT); Cryptosporidium Not Detected (NOT DETECT); Cyclospora Cayetanensis Not Detected (NOT DETECT); E. Coli O157 Not Detected (NOT DETECT); Entamoeba Histolytica Not Detected (NOT DETECT); Enteroaggregative E. coli-EAEC Not Detected (NOT DETECT); Enteropathogenic E. coli-EPEC Not Detected (NOT DETECT); Enterotoxigenic E. coli-ETEC Not Detected (NOT DETECT); Giardia Lamblia Not Detected (NOT DETECT); Norovirus GI/GII Not Detected (NOT DETECT); Plesiomonas Shigelloides Not Detected (NOT DETECT); Rotavirus A Not Detected (NOT DETECT); Salmonella Sp Not Detected (NOT DETECT); Sapovirus Not Detected (NOT DETECT); Shiga Toxin-prod E. coli-STEC Not Detected (NOT DETECT); Shigella/Enteroin E. coli-EIEC Not Detected (NOT DETECT); Vibrio Cholerae Not Detected (NOT DETECT); Vibrio Sp Not Detected (NOT DETECT); Yersinia Enterocolitica Not Detected (NOT DETECT)
== END | disposition home or self-care (01) ==
LOC: LAB SHORT 12:00 → LAB 12:00 → LAB SHORT 05-31 12:00
PROVIDERS: Emergency Medicine
DX: R19.7 Diarrhea, unspecified (principal)
CPT/HCPCS: 0097U

== ENCOUNTER 2019-06-16 10:44 | Emergency (ER) | payer MEDICARE ==
[~2019-06-16] VITALS: Ht 162.6 cm; Wt 45.4 kg
[2019-06-16 12:24] LABS: BASOPHILS ABSOLUTE AUTO 0.04 K/mm3 (0.00-0.23); BASOPHILS PERCENT AUTO 1 % (0-2); EOSINOPHILS ABSOLUTE AUTO 0.11 K/mm3 (0.00-0.68); EOSINOPHILS PERCENT AUTO 2 % (0-6); Hematocrit 40.2 % (33.0-51.0); Hemoglobin 12.8 g/dL (11.5-16.0); IMMATURE GRAN ABSOLUTE AUTO 0.02 K/mm3 (0.00-0.10); IMMATURE GRAN PERCENT AUTO 0 % (0-1); LYMPHOCYTES ABSOLUTE AUTO 1.18 K/mm3 (0.84-5.20); LYMPHOCYTES PERCENT AUTO 18 % (21-46); MONOCYTES ABSOLUTE AUTO 0.32 K/mm3 (0.16-1.47); MONOCYTES PERCENT AUTO 5 % (4-13); Mean Corpuscular HGB 31.8 pg (26.0-34.0); Mean Corpuscular HGB Conc 31.8 g/dL (31.5-36.5); Mean Corpuscular Volume 100 fL (80-100); Mean Platelet Volume 10.4 fL (9.1-12.4); NEUTROPHILS ABSOLUTE AUTO 4.84 K/mm3 (1.96-9.15); NEUTROPHILS PERCENT AUTO 74 % (41-73); Platelet Count 261 K/mm3 (150-400); RDW Coefficient Variation 12.4 % (11.7-14.2); RDW Standard Deviation 45.5 fL (35.1-46.3); Red Blood Cell Count 4.03 M/mm3 (3.80-5.20); White Blood Cell Count 6.51 K/mm3 (4.00-11.30)
[2019-06-16 12:39] LABS: Alanine Aminotransfer (ALT/SGP 15 U/L (12-78); Albumin, Blood 3.6 g/dL (3.4-5.0); Albumin/Globulin Ratio 0.8 (0.8-1.8); Alk Phos 85 U/L (50-136); Anion Gap 4 mmol/L (6-16); Aspartate Aminotrans (AST/SGOT 11 U/L (12-37); Bilirubin, Total 0.4 mg/dL (0.1-1.0); Blood Urea Nitrogen 45 mg/dL (8-24); Bun/Creatinine Ratio 63.6 (12.0-20.0); CO2, Blood 30 mmol/L (21-32); Calcium, Blood 10.4 mg/dL (8.5-10.1); Chloride, Blood 110 mmol/L (98-108); Creatinine, Blood 0.71 mg/dL (0.40-1.00); Globulin, Blood 4.4 g/dL (2.2-4.0); Glomerular Filtration Rate >60 (60-); Glucose, Blood 101 mg/dL (70-99); International Normalized Ratio 0.99; Potassium, Blood 3.8 mmol/L (3.5-5.5); Prothrombin Time Results 10.5 Sec (9.7-11.5); Sodium, Blood 144 mmol/L (136-145)
--- NOTE | 2019-06-16 14:01 | NUR ---
Initial Visit: ED Palliative Care Consult for Goals of Care. Spoke with Dr Valderrama, bedside DANIEL Mcgovern and discussed case. Pt is resting on gurney and appears comfortable with no S/S of distress at this time. Daughter Deja and caregiver Gibson are present during visit. Engaged in therapeutic discussion regarding goals of care. Daughter Deja reports having conversations with Dr Alexander regarding hospice in the past but has not been ready to consider. Deja states she is ready for her mom to go on hospice. Educated on hospice philosophy with V/U made by Deja. Pt is non verbal at baseline, requires assistance with bathing and dressing. Pt is incontinent of bowel and bladder and requires assistance with feeding. 2 weeks ago Pt was able to ambulate with assistance short distances but has been bed bound since. Deja also reports Pt is not able to sit upright on her own. Deja also reports Pt has decreased appetite eating 2 small meals a day. Pt also coughs when drinking indicating the possibility of difficulty swallowing. Deja is Pt's primary caregiver and Gibson is a hired mathematics department chair caregiver. Gibson provides care for Pt from 9:00 to 11:00 in the AM and 4:00 to 6:30 in the evening. 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 Pt als has history of PE, Falls, HTN, and Iron Defeciency Anemia. Currently in ED for Black Tarry Stools. Spoke with rayon tester Corin and discussed case. Spoke with [facility] Gloria and discussed case. PPS 30% FAST score 7D ADLs 6/6 Pt appears appropriate for Hospice and family is agreeable to Hospice services. Palliative Care will remain available.
== END 2019-06-16 14:06 | disposition home or self-care (01) ==
LOC: ER 10:44
PROVIDERS: Emergency Medicine
DX: K92.2 Gastrointestinal hemorrhage, unspecified (principal); Z79.01 Long term (current) use of anticoagulants; F03.90 Unspecified dementia, unspecified severity, without behavioral disturbance, psychotic disturbance, mood disturbance, and anxiety; Z86.711 Personal history of pulmonary embolism; Z79.899 Other long term (current) drug therapy
CPT/HCPCS: 36415; 80053; 82272; 85025; 85610; 85730; 86850; 86900; 86901; 99283